=== PATIENT | female | born 1980 | race Caucasian/White ===

== ENCOUNTER 2020-12-11 13:46 | Emergency (ER) | payer OTHER ==
[~2020-12-11] VITALS: Ht 170.2 cm; Wt 63.5 kg
[2020-12-11] MEDS ORDERED: PROAIR HFA8.5 GM INH (14:18)
[2020-12-11] MEDS ORDERED: IRON18 M1 PO (14:18)
[2020-12-11] MEDS ORDERED: EFFEXOR XR75 MG PO (14:18)
[2020-12-11] MEDS ORDERED: SUPER THERAVIT1 EACH PO (14:18)
[2020-12-11 15:15] LABS: ABSOLUTE EOSINOPHILS 0.5 thou/uL (0.0-0.7); ABSOLUTE LYMPHOCYTES 1.2 thou/uL (0.8-5.3); ABSOLUTE MONOCYTES 0.8 thou/uL (0.0-1.2); BASOPHILS 0.5 %; HEMATOCRIT 42.1 % (37.0-47.0); HEMOGLOBIN 14.5 gm/dL (12.0-15.0); LYMPHOCYTES 14.3 %; MCH 31.6 pg (26.0-34.0); MCHC 34.3 g/dL (28.0-37.0); MCV 92.3 fL (80.0-100.0); MONOCYTES 9.5 %; MPV 7.2 fl. (7.2-11.1); NUCLEATED RBCS 0 /100WBC; PLATELET COUNT* 319 thou/uL (150-400); POLYS 69.7 %; RBC 4.57 mil/uL (4.20-5.00); RDW-CV 12.8 % (10.5-14.5); WBC 8.6 thou/uL (4.0-11.0)
[2020-12-11 15:22] LABS: CALCIUM 9.1 mg/dL (8.5-10.1); CREATININE 0.9 mg/dL (0.6-1.3); POTASSIUM 3.5 mmol/L (3.5-5.1)
[2020-12-11 15:27] LABS: ALBUMIN 4.2 g/dL (3.4-5.0); TOTAL BILIRUBIN 0.5 mg/dL (<0.1-1.0); TOTAL PROTEIN 7.9 g/dL (6.4-8.2)
--- NOTE | 2020-12-11 15:40 | EKG ---
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
[2020-12-11] MEDS ORDERED: PREDNISONE 20 M20 MG PO (16:05)
[2020-12-11] MEDS ORDERED: ALBUTEROL2.5 MG/31 INH (16:05)
[2020-12-11 16:20] VITALS: BP 138/85
== END 2020-12-11 16:21 | disposition home or self-care (01) ==
LOC: M.ERS 13:46
PROVIDERS: Physician Assistant
DX: J45.901 Unspecified asthma with (acute) exacerbation (principal); Z20.822 Contact with and (suspected) exposure to COVID-19; Z79.899 Other long term (current) drug therapy

== ENCOUNTER 2020-12-14 10:48 | Emergency (ER) | payer OTHER ==
[~2020-12-14] VITALS: Ht 162.6 cm; Wt 63.5 kg
[~2020-12-14 10:48] MED LIST: ALBUTEROL2.5 MG/31 INH; EFFEXOR XR75 MG PO; IRON18 M1 PO; PREDNISONE 20 M20 MG PO; PROAIR HFA8.5 GM INH; SUPER THERAVIT1 EACH PO
[2020-12-14 13:04] LABS: ABSOLUTE BASOPHILS 0.1 thou/uL (0.0-0.2); ABSOLUTE LYMPHOCYTES 2.1 thou/uL (0.8-5.3); ABSOLUTE MONOCYTES 0.9 thou/uL (0.0-1.2); ABSOLUTE NEUTROPHILS 7.8 thou/uL (1.6-8.1); BASOPHILS 0.5 %; EOSINOPHILS 0.3 %; HEMATOCRIT 43.8 % (37.0-47.0); HEMOGLOBIN 15.2 gm/dL (12.0-15.0); MCH 31.9 pg (26.0-34.0); MCHC 34.8 g/dL (28.0-37.0); MCV 91.6 fL (80.0-100.0); MONOCYTES 8.6 %; MPV 7.2 fl. (7.2-11.1); NUCLEATED RBCS 0 /100WBC; PLATELET COUNT* 358 thou/uL (150-400); POLYS 71.6 %; RBC 4.78 mil/uL (4.20-5.00); RDW-CV 12.8 % (10.5-14.5); WBC 10.9 thou/uL (4.0-11.0)
[2020-12-14 13:15] LABS: CALCIUM 9.1 mg/dL (8.5-10.1); CREATININE 0.7 mg/dL (0.6-1.3); POTASSIUM 3.2 mmol/L (3.5-5.1)
[2020-12-14 13:19] LABS: TOTAL BILIRUBIN 0.5 mg/dL (<0.1-1.0); TOTAL PROTEIN 7.7 g/dL (6.4-8.2)
--- NOTE | 2020-12-14 13:39 | EKG ---
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[facility] : 1980 Requested By: Vandana Gunn Order Number: [id number] MD: Sunny Zarate Measurements Intervals [place] Rate: 94 P: 65 VA: 157 QRS: 70 QRSD: 96 T: 42 QT: 373 QTc: 467 Interpretive Statements Sinus rhythm RSR' in V1 or V2, probably normal variant Baseline wander in lead(s) II Compared to ECG 12/11/2020 15:06:51 Sinus tachycardia no longer present Electronically Signed On 12-14-2020 13:38:56 CDT by Sunny Zarate [email or web address] <ELECTRONICALLY SIGNED> By: Sunny Zarate MD, [facility] 12/14/20 1338 1319 1319 Sunny Zarate MD, [facility] /EPI
[2020-12-14] MEDS ORDERED: DOXYCYCLINE 10100 MG PO (15:22)
[2020-12-14] MEDS ORDERED: PREDNISONE 10 M10 MG PO (15:22)
[2020-12-14 15:50] VITALS: BP 114/73
== END 2020-12-14 15:51 | disposition home or self-care (01) ==
LOC: M.ERS 10:48
PROVIDERS: Nurse Practitioner Family
DX: J20.9 Acute bronchitis, unspecified (principal); Z20.822 Contact with and (suspected) exposure to COVID-19; J45.909 Unspecified asthma, uncomplicated; Z79.899 Other long term (current) drug therapy; Z79.51 Long term (current) use of inhaled steroids